=== PATIENT | male | born 1990 | race Hispanic/Latino ===

== ENCOUNTER 2018-04-30 19:27 | Emergency (ER) | payer OTHER ==
[2018-04-30] MEDS ORDERED: Lorazepam 2 MG/ML VIAL ONE ×2 (19:51→19:58)
--- NOTE | 2018-04-30 20:20 | RAD ---
CHEST UPRIGHT PORTABLE ONE VIEW: History: 28-year-old male with history of chest pain, panic attack. FINDINGS: There is some rotation to the left. Monitor leads overlie the chest. Heart size is within normal limi ts. The lungs are clear. IMPRESSION: No acute intrathoracic disease. POS: [facility]
[2018-04-30] MEDS ORDERED: diphenhydrAMINE 50 MG/ML VIAL ONE (20:55)
[2018-04-30] MEDS ORDERED: Water For Inject, Bacteriostat 30 ML ONE (21:07)
[2018-04-30] MEDS ORDERED: Ziprasidone 20 MG VIAL ONE (21:07)
[2018-04-30 22:25] LABS: #Basophils 0.1 thou/uL (0.0-0.2); #Lymphocytes 1.3 thou/uL (1.20-3.40); #Monocytes 0.8 thou/uL (0.11-0.59); #Neutrophils 8.1 thou/uL (1.40-6.50); %Basophils 0.6 % (0.0-1.0); %Eosinophils 0.2 % (0.0-10.0); %Monocytes 7.9 % (0.0-10.0); %Neutrophils 78.4 % (42.0-75.0); Hemoglobin 14.5 g/dL (14.0-18.0); Mean Corpuscular HGB CONC 34.5 g/dL (32.0-36.0); Mean Corpuscular Hemoglobin 31.8 pg (27.0-31.0); Mean Corpuscular Volume 92.2 fL (78.0-98.0); Mean Platelet Volume 6.8 fL (7.4-10.4); Platelet Count 382 thou/uL (130-400); RBC Distribution Width 11.2 % (11.5-14.5); Red Blood Cell (RBC) Count 4.55 mill/uL (4.70-6.10); White Blood Cell (WBC) Count 10.3 thou/uL (4.8-10.8)
[2018-04-30 22:43] LABS: ALT (SGPT) 24 U/L (8-55); AST (SGOT) 22 U/L (5-34); Albumin 5.1 g/dL (3.5-5.0); Alkaline Phosphatase 80 U/L (40-150); Anion Gap 21 mmol/L (10-20); BUN (Urea Nitrogen) 11 mg/dL (8.9-20.6); Bilirubin, Total 0.5 mg/dL (0.2-1.2); Calc. Creatinine Clearance 0 mL/min (70-130); Calcium 10.3 mg/dL (7.8-10.44); Carbon Dioxide 18 mmol/L (22-29); Chloride 99 mmol/L (98-107); Estimated GFR-MDRD 80; Globulin 3.1 g/dL (2.4-3.5); Glucose 125 mg/dL (70-105); Lipase 20 U/L (8-78); Protein, Total 8.2 g/dL (6.0-8.3); Sodium 135 mmol/L (136-145)
--- NOTE | 2018-05-02 13:17 | EKG ---
Test Reason : ANXIETY Blood Pressure : / mmHG Vent. Rate : 089 BPM Atrial Rate : 089 BPM P-R Int : 152 ms QRS Dur : 100 ms QT Int : 290 ms P-R-T Axes : 092 -20 040 degrees QTc Int : 352 ms Normal sinus rhythm with sinus arrhythmia Possible Left atrial enlargement Incomplete right bundle branch block Borderline ECG Confirmed by MATTHEW HUGHES, NADINE ([id number]), school photograph editor JAYDE YOUSSEF ([id number]) on 05/02/2018 1:17:15 PM Referred By: Confirmed By:NADINE CASTRO MD
== END 2018-04-30 23:20 | disposition home or self-care (01) ==
LOC: ERS 19:27
DX: F41.0 Panic disorder [episodic paroxysmal anxiety] (principal); E87.6 Hypokalemia; R10.9 Unspecified abdominal pain; F41.9 Anxiety disorder, unspecified; Z79.899 Other long term (current) drug therapy
CPT/HCPCS: 71045; 80053; 83690; 85025; 93005; 96372; 96374; 96375; J1200; J2060; J3486

== ENCOUNTER 2018-05-01 06:02 | Emergency (ER) | payer OTHER ==
[2018-05-01] MEDS ORDERED: Ondansetron PF 4 MG/2 ML Vial ONE ×2 (06:42→10:22)
[2018-05-01 07:01] LABS: #Lymphocytes 0.6 thou/uL (1.20-3.40); #Monocytes 0.3 thou/uL (0.11-0.59); #Neutrophils 7.3 thou/uL (1.40-6.50); %Basophils 0.1 % (0.0-1.0); %Eosinophils 0.1 % (0.0-10.0); %Lymphocytes 7.4 % (21.0-51.0); %Monocytes 3.7 % (0.0-10.0); %Neutrophils 88.7 % (42.0-75.0); Hemoglobin 13.5 g/dL (14.0-18.0); Mean Corpuscular Volume 91.4 fL (78.0-98.0); Mean Platelet Volume 6.2 fL (7.4-10.4); Platelet Count 369 thou/uL (130-400); RBC Distribution Width 11.1 % (11.5-14.5); Red Blood Cell (RBC) Count 4.23 mill/uL (4.70-6.10); White Blood Cell (WBC) Count 8.2 thou/uL (4.8-10.8)
[2018-05-01 07:18] LABS: Anion Gap 14 mmol/L (10-20); BUN (Urea Nitrogen) 13 mg/dL (8.9-20.6); Calc. Creatinine Clearance 0 mL/min (70-130); Calcium 9.8 mg/dL (7.8-10.44); Carbon Dioxide 18 mmol/L (22-29); Chloride 107 mmol/L (98-107); Estimated GFR-MDRD Greater than 90; Glucose 129 mg/dL (70-105); Potassium 3.8 mmol/L (3.5-5.1); Sodium 135 mmol/L (136-145)
--- NOTE | 2018-05-01 07:59 | ULT ---
GALLBLADDER ULTRASOUND: Date: 05/01/18 HISTORY: 28-year-old male with history of right upper quadrant tenderness. FINDINGS: Liver echogenicity appears unremarkable. The gallbladder is demonstrated without evidence of gallston es, wall thickening, edema, or pericholecystic fluid. Common bile duct is 0.2 cm. No intrahepatic shavon yunior dilatation. Visualized pancreas and right kidney are unremarkable. IMPRESSION: Unremarkable right upper quadrant ultrasound. No evidence for gallstones. POS: [facility]
[2018-05-01 09:45] LABS: Bilirubin Negative (Negative); Clarity CLEAR (Clear); Glucose, Urine (Dipstick) Negative (Negative); Leukocyte Negative (Negative); Nitrite Negative (Negative); Protein, Urine (Dipstick) 30 mg/dL (Neg-Trace); Specific Gravity, Urine 1.019 (1.002-1.036); Urobilinogen 0.2 mg/dL (0.2-1.0)
[2018-05-01 09:48] LABS: Hyaline Casts/LPF 4-6 HYALINE CAST LPF (0-3 Hyaline); Squamous Epithelial 0-3 HPF (0-3); WBC/HPF 0-3 HPF (0-3)
[2018-05-01 10:06] LABS: Blood, Urine Trace (Negative)
[2018-05-01 10:07] LABS: Bacteria/HPF Rare-Few HPF (None Seen)
== END 2018-05-01 11:25 | disposition home or self-care (01) ==
LOC: ERS 06:02
DX: R10.11 Right upper quadrant pain (principal); F41.9 Anxiety disorder, unspecified; F32.9 Major depressive disorder, single episode, unspecified; Z79.899 Other long term (current) drug therapy
CPT/HCPCS: 76705; 80048; 81003; 81015; 85025; 96361; 96374; 96376; J2405

== ENCOUNTER 2018-05-02 09:33 | Emergency (ER) | payer OTHER ==
[2018-05-02] MEDS ORDERED: Ziprasidone 20 MG VIAL ONE (10:12)
[2018-05-02] MEDS ORDERED: Sterile Water 10 ML ONE (10:14)
[2018-05-02] MEDS ORDERED: Promethazine HCl 25 MG/ML VIAL ONE ×2 (11:08→12:43)
[2018-05-02] MEDS ORDERED: Pantoprazole 40 MG VIAL ONE (11:40)
[2018-05-02] MEDS ORDERED: diphenhydrAMINE 50 MG/ML VIAL ONE (12:45)
== END 2018-05-02 13:08 | disposition home or self-care (01) ==
LOC: ERS 09:33
DX: F41.0 Panic disorder [episodic paroxysmal anxiety] (principal); K29.70 Gastritis, unspecified, without bleeding; F32.9 Major depressive disorder, single episode, unspecified; Z79.899 Other long term (current) drug therapy
CPT/HCPCS: 96361; 96372; 96374; 96375; A4216; C9113; J1200; J2550; J3486